=== PATIENT | female | born 1985 | race Caucasian/White ===

== ENCOUNTER 2017-06-11 19:02 | Emergency (ER) | payer MEDICAID ==
[~2017-06-11] VITALS: Ht 157.5 cm; Wt 50.0 kg
[~2017-06-11 19:02] MED LIST: DOCU-138 PO; IBUP-779 PO
[2017-06-11] MEDS ORDERED: LIDOCAINE HCL 1% 20ML VIAL (Pyxis) INJ MC ONE (21:00)
[2017-06-11] MEDS: SODIUM CHLORIDE 0.9% 1,000 ML IV ONE (21:24)
[2017-06-11] MEDS: TETANUS, DIPHTHERIA, PERTUSSIS VAC/PF 0.5ML (>7YR OLD) IM ONE (21:24)
[2017-06-11 21:50] LABS: BASOPHILS % 0.1 % (0.0-2.0); EOSINOPHILS % 0.1 % (0.0-5.0); HEMATOCRIT. 38.7 % (36.0-48.0); HEMOGLOBIN. 13.5 g/dL (12.0-16.0); LYMPHOCYTES % 10.5 % (20.0-50.0); MEAN CORPUSCULAR HEMOGLOBIN 32.4 pg (28.0-32.0); MEAN CORPUSCULAR VOLUME 93.3 fL (81.0-99.0); MEAN PLATELET VOLUME 8.3 fl (7.4-10.4); MONOCYTES % 4.1 % (2.0-8.0); NEUTROPHILS % 85.2 % (40.0-76.0); PLATELET 167 x1000/uL (130-400); RED BLOOD CELL COUNT 4.15 mill/uL (4.2-5.4); RED CELL DISTRIBUTION WIDTH 12.8 % (11.6-14.6)
[2017-06-11 21:57] LABS: CHLORIDE 109 mEq/L (98-107)
[2017-06-11 22:03] LABS: CARBON DIOXIDE 22 mEq/L (21-32)
[2017-06-11 22:06] LABS: TROPONIN I < 0.02 ng/mL (0.00-0.04)
[2017-06-11 22:15] LABS: HCG SCREEN NEGATIVE
[2017-06-11] MEDS ORDERED: IBUPROFEN 400MG TABLET PO ONE (23:45)
[2017-06-12 00:03] VITALS: BP 121/71
== END 2017-06-12 00:03 | disposition home or self-care (01) ==
LOC: ER 19:13
DX: S01.112A Laceration without foreign body of left eyelid and periocular area, initial encounter (principal); R55 Syncope and collapse; W19.XXXA Unspecified fall, initial encounter; Y93.89 Activity, other specified; Y92.89 Other specified places as the place of occurrence of the external cause; Y99.8 Other external cause status
CPT/HCPCS: 12011; 36415; 70450; 70486; 80053; 84484; 84703; 85025; 90471; 90715; 93005; 96360; 99285; J3490; Z7610; J7030